=== PATIENT | female | born 1985 | race Caucasian/White ===

== ENCOUNTER 2017-12-20 08:55 | Inpatient (IN) | payer MEDICAID ==
[~2017-12-20 08:55] MED LIST: CARBOPROST 250 MCG INJ; METHYLERGONOVINE 0.2 MG INJ
[2017-12-20] MEDS ORDERED: OXYTOCIN 30 UNITS/LR 500 ML IV ×3 (09:02→15:30)
[2017-12-20] MEDS: LACTATED RINGER'S 1,000 ML IV* ×3 (09:20→23:25)
[2017-12-20] MEDS ORDERED: IBUPROFEN 600 MG TAB PO (09:30)
[2017-12-20] MEDS ORDERED: LIDOCAINE 1% (MPF) 30 ML INJ INJ (09:30)
[2017-12-20] MEDS: OXYTOCIN 30 UNITS/LR 500 ML IV ×3 (09:32→13:39)
[2017-12-20] MEDS: morphine LIQ (10 MG/5 ML) CUP PO (10:25)
[2017-12-20] MEDS ORDERED: morphine 10 MG INJ (10:27)
[2017-12-20] MEDS: TRANEXAMIC ACID 1,000 MG in DEXTROSE 5% 100 ML IV (10:37)
[2017-12-20] MEDS: MISOPROSTOL 200 MCG TAB PR ×2 (10:39→12:27)
[2017-12-20] MEDS: METHYLERGONOVINE 0.2 MG INJ IM (10:40)
[2017-12-20] MEDS: CARBOPROST 250 MCG INJ IM (10:42)
[2017-12-20 11:19] LABS: ADD MAN DIFF? NO
[2017-12-20 11:24] LABS: BASOPHILS % 0.2 % (0.0-2.0); EOSINOPHILS % 0.1 % (0.0-7.0); HEMOGLOBIN 13.5 g/dl (12.0-16.0); LYMPHOCYTES # 1.3 10^3/ul (0.8-2.9); LYMPHOCYTES % 8.3 % (15.0-51.0); MEAN CORPUSCULAR HGB CONC 33.8 g/dl (32.0-37.0); MEAN CORPUSCULAR VOLUME 91.7 fl (82.0-101.0); MONOCYTE # 0.6 10^3/ul (0.3-0.9); MONOCYTES % 3.6 % (0.0-11.0); NEUTROPHIL # 13.8 10^3/ul (1.6-7.5); NEUTROPHILS % 87.2 % (39.0-77.0); PLATELET COUNT 163 10^3/UL (140-415); RED BLOOD COUNT 4.36 10^6/ul (4.20-5.40); RED CELL DISTRIBUTION WIDTH 13.4 % (11.5-14.5)
[2017-12-20 11:24] LABS: WHITE BLOOD COUNT 15.8 10^3/ul (4.8-10.8)
[2017-12-20 11:43] LABS: INR 0.92; PROTIME 12.4 Sec (11.9-14.9)
[2017-12-20 11:44] LABS: PARTIAL THROMBOPLASTIN TIME 29.9 Sec (23.0-35.0)
[2017-12-20] MEDS: CEFAZOLIN 2 GM/50 ML (PMX) 50 ML IVPB (12:16)
[2017-12-20 15:20] LABS: RAPID PLASMA REAGIN NONREACTIVE (NR)
[2017-12-20] MEDS ORDERED: DIBUCAINE 1% 30 GM OINT PR (15:30)
[2017-12-20] MEDS ORDERED: ACETAMINOPHEN 325 MG TAB PO (15:30)
[2017-12-20] MEDS ORDERED: CARBOPROST 250 MCG INJ IM (15:30)
[2017-12-20] MEDS ORDERED: MISOPROSTOL 200 MCG TAB PR (15:30)
[2017-12-20] MEDS ORDERED: BENZOCAINE 20% 56 ML SPRAY TOP (15:30)
[2017-12-20] MEDS ORDERED: WITCH HAZEL/GLYCERIN PAD PR (15:30)
[2017-12-20] MEDS ORDERED: HYDROCODONE/APAP (5/325) TAB PO (15:30)
[2017-12-20] MEDS ORDERED: METHYLERGONOVINE 0.2 MG INJ IM (15:30)
[2017-12-20] MEDS: IBUPROFEN 600 MG TAB PO ×2 (18:03→23:36)
[2017-12-20] MEDS: SENNA/DOCUSATE NA (8.6MG/50MG) TAB PO (20:59)
[2017-12-21] MEDS: OXYTOCIN 30 UNITS/LR 500 ML IV ×4 (00:33→10:30)
[2017-12-21] MEDS: LACTATED RINGER'S 1,000 ML IV* ×3 (01:30→09:30)
[2017-12-21] MEDS: IBUPROFEN 600 MG TAB PO ×4 (05:48→23:57)
[2017-12-21 08:54] LABS: ADD MAN DIFF? NO
[2017-12-21 09:01] LABS: BASOPHILS % 0.4 % (0.0-2.0); EOSINOPHILS # 0.1 10^3/ul (0.0-0.5); EOSINOPHILS % 0.8 % (0.0-7.0); HEMATOCRIT 30.8 % (37.0-47.0); HEMOGLOBIN 10.2 g/dl (12.0-16.0); LYMPHOCYTES # 3.1 10^3/ul (0.8-2.9); LYMPHOCYTES % 27.5 % (15.0-51.0); MEAN CORPUSCULAR HEMOGLOBIN 30.9 pg (29.0-33.0); MEAN CORPUSCULAR HGB CONC 33.1 g/dl (32.0-37.0); MEAN CORPUSCULAR VOLUME 93.3 fl (82.0-101.0); MEAN PLATELET VOLUME 12.5 fl (7.4-10.4); MONOCYTE # 0.7 10^3/ul (0.3-0.9); NEUTROPHIL # 7.2 10^3/ul (1.6-7.5); NEUTROPHILS % 64.5 % (39.0-77.0); PLATELET COUNT 144 10^3/UL (140-415); RED CELL DISTRIBUTION WIDTH 13.9 % (11.5-14.5)
[2017-12-21 09:01] LABS: WHITE BLOOD COUNT 11.2 10^3/ul (4.8-10.8)
[2017-12-21] MEDS: SENNA/DOCUSATE NA (8.6MG/50MG) TAB PO ×2 (10:06→23:57)
[2017-12-21] MEDS: DIPHTH/TET/ACEL PERTUSS (ADULT) 0.5 ML VIAL IM* (11:10)
[2017-12-22] MEDS: IBUPROFEN 600 MG TAB PO ×2 (06:13→12:52)
[2017-12-22] MEDS: LANOLIN 7 GM TUBE TOP (08:56)
[2017-12-22] MEDS: SENNA/DOCUSATE NA (8.6MG/50MG) TAB PO (08:56)
== END 2017-12-22 18:12 | disposition home or self-care (01) | DRG 807 ==
LOC: OBT 08:55 → L-D 08:55 → OBT 08:56 → L-D 08:57 → PP1 14:55
PROVIDERS: Specialist
PROC: 10E0XZZ Delivery of Products of Conception, External Approach (ICD-10-PCS; principal; 2017-12-20)
DX: O77.0 Labor and delivery complicated by meconium in amniotic fluid (principal); Z37.0 Single live birth; Z3A.39 39 weeks gestation of pregnancy
CPT/HCPCS: 85025; 85610; 85730; 86592; 86850; 86900; 86901; 99464

== ENCOUNTER 2018-06-14 05:52 | Day surgery (SDC) | payer MEDICAID ==
[2018-06-14] MEDS ORDERED: LACTATED RINGER'S 1,000 ML IV* (06:00)
[2018-06-14] MEDS ORDERED: CEFAZOLIN 2 GM/50 ML (PMX) 50 ML IVPB (06:00)
[2018-06-14] MEDS ORDERED: PROPOFOL 20 ML (06:56)
[2018-06-14] MEDS ORDERED: CEFAZOLIN 1 GM INJ (06:56)
[2018-06-14] MEDS ORDERED: FENTAnyl 50 MCG/ML VIAL (06:56)
[2018-06-14] MEDS ORDERED: LIDOCAINE 2% (SDV) 5 ML INJ (06:56)
[2018-06-14] MEDS ORDERED: ROCURONIUM 50 MG INJ (06:56)
[2018-06-14] MEDS ORDERED: DESFLURANE 15 MIN (07:00)
[2018-06-14] MEDS ORDERED: ONDANSETRON 4 MG INJ (07:40)
[2018-06-14] MEDS ORDERED: FAMOTIDINE 20 MG INJ (07:40)
[2018-06-14] MEDS ORDERED: DEXAMETHASONE 4 MG/ML 5 ML INJ (07:40)
[2018-06-14] MEDS ORDERED: METOCLOPRAMIDE 10 MG INJ (07:40)
[2018-06-14] MEDS: BUPIVACAINE 0.5%/EPI (SDV) 30 ML INJ (07:47)
[2018-06-14] MEDS ORDERED: GLYCOPYRROLATE 0.4 MG INJ (07:55)
[2018-06-14] MEDS ORDERED: NEOSTIGMINE 3 MG/3 ML SYRINGE (07:55)
[2018-06-14] MEDS ORDERED: FENTAnyl 50 MCG/ML VIAL IV (08:00)
[2018-06-14] MEDS ORDERED: OXYCODONE/ACETAMINOPHEN (5/325) TAB PO (08:00)
[2018-06-14] MEDS: FENTAnyl 50 MCG/ML VIAL IV ×2 (08:36→08:52)
[2018-06-14] MEDS: ONDANSETRON 4 MG INJ IV (08:37)
[2018-06-14] MEDS: MEPERIDINE 25 MG INJ IV (08:37)
[2018-06-14] MEDS: OXYCODONE/ACETAMINOPHEN (5/325) TAB PO (08:55)
== END 2018-06-14 10:15 | disposition home or self-care (01) ==
LOC: SDS 05:52
DX: Z30.2 Encounter for sterilization (principal)
CPT/HCPCS: 58661; 88302